=== PATIENT | female | born 1950 | race Caucasian/White ===

== ENCOUNTER → 2019-05-20 | Outpatient (CLI) | payer OTHER ==
[~2019-05-20] MED LIST: Budeprion Sr150 MG PO; CYCL10 PO; ESTR2 PO; HYDR1TAB94 PO; LEVSOD100 PO
== END | disposition home or self-care (01) ==
LOC: LAB SHORT 16:30 → LAB EV 16:30
DX: R30.0 Dysuria (principal)
CPT/HCPCS: 87086

== ENCOUNTER → 2019-09-01 | Outpatient (CLI) | payer OTHER | END | disposition home or self-care (01) | LOC: LAB 17:35 → LAB SHORT 17:35 | DX: R11.0 Nausea (principal) | CPT/HCPCS: 87338 ==

== ENCOUNTER → 2021-08-16 | Outpatient (CLI) | payer MEDICARE | END | disposition home or self-care (01) | LOC: LAB 09:37 → LAB SHORT 09:37 | DX: L72.3 Sebaceous cyst (principal) | CPT/HCPCS: 87070; 87075; 87205 ==

== ENCOUNTER → 2021-09-02 | Outpatient (CLI) | payer MEDICARE | END | disposition home or self-care (01) | LOC: LAB SHORT 07:23 | DX: L82.1 Other seborrheic keratosis (principal) | CPT/HCPCS: 88305 ==